=== PATIENT | female | born 1995 | race African-American/Black ===

== ENCOUNTER 2017-12-11 05:11 | Inpatient (IN) ==
[2017-12-11] MEDS ORDERED: ONDANSETRON 4 MG/2 ML VIAL IV PRN (05:21)
[2017-12-11] MEDS ORDERED: OXYTOCIN/LR 20 UNIT/1,000 ML BAG IV SCH (05:30)
[2017-12-11] MEDS: LACTATED RINGERS 1,000 ML IV SCH (05:40)
[2017-12-11 06:15] LABS: Basophils % 0.2 % (0.0-0.8); Eosinophils # 0.1 10*3/uL (0.0-0.87); Eosinophils % 1.1 % (0.00-10.9); Hemoglobin 11.1 GM/DL (12.0-16.0); Immature Granulocytes % 1.4 %; Immature Granulocytes Absolute 0.13 #; Lymphocytes # 2.7 10*3/uL (1.4-4.0); Lymphocytes % 28.3 % (21.3-54.2); Mean Corpuscular HGB Conc 33.6 GM/DL (32-36); Mean Corpuscular Hemoglobin 31 PG (27-34); Mean Corpuscular Volume 91.4 FL (87-102); Mean Platelet Volume 9.9 FL (9.6-12.0); Monocytes % 10.1 % (1.7-12.7); Neutrophils # 5.6 10*3/uL (1.4-7.4); Neutrophils % 58.9 % (38.7-73.9); Platelet Count 314 T/CUMM (130-400); Red Blood Count 3.61 MC/CUMM (3.8-5.5); Red Cell Distribution Width 13.4 % (9.3-17.3); White Blood Count 9.5 T/CUMM (4-12)
[2017-12-11] MEDS: CLINDAMYCIN INJ 900 MG in PREMIX 1 EACH IV SCH ×2 (06:28→14:09)
[2017-12-11 06:53] LABS: Albumin 2.8 G/DL (3.4-5.0); Bilirubin,Total 0.9 MG/DL (0.2-1.0); Calcium 8.5 MG/DL (8.5-10.1); Osmolality,Calculated 273.5 MOS/KG (273-304); Potassium 3.5 MMOL/L (3.5-5.1); Total Protein 6.8 G/DL (6.4-8.3)
[2017-12-11] MEDS ORDERED: BUTORPHANOL 2 MG/ML VIAL IV PRN (09:43)
[2017-12-11] MEDS ORDERED: FAMOTIDINE 20 MG/2 ML VIAL IV ONE (10:49)
[2017-12-11] MEDS ORDERED: PROMETHAZINE 25 MG/1 ML VIAL IM ONE (10:49)
[2017-12-11] MEDS ORDERED: ONDANSETRON 4 MG/2 ML VIAL IV ONE (10:49)
[2017-12-11] MEDS ORDERED: ePHEDrine 50 MG/ML AMP IV PRN (10:49)
[2017-12-11] MEDS ORDERED: hydrOXYzine HCL 25 MG/1 ML VIAL IM PRN (10:49)
[2017-12-11] MEDS ORDERED: CITRIC ACID/SODIUM CITRATE 30 ML UDCUP PO ONE (10:49)
[2017-12-11] MEDS ORDERED: diphenhydrAMINE 50 MG/1 ML VIAL IV PRN ×2 (10:49)
[2017-12-11] MEDS ORDERED: fentaNYL 2 MCG/ROPIV 0.2% EPID 150 ML EPIDURAL SCH (11:00)
[2017-12-11 12:36] LABS: Apearance,Urine CLEAR (Clear); Bilirubin,Urine Negative (Negative); Blood, Urine Negative (Negative); Glucose,Urine (UA) Negative (Negative); Ketones,Urine 20 mg/dL (Negative); Nitrite,Urine Negative (Negative); Protein,Urine Negative; RBC,Urine 3 /HPF (0-4); Urine Color Straw (Yellow); Urine Specific Gravity 1.006 (1.001-1.035); Urine Urobilinogen < 2.0 EU/DL (0.2-1.0); WBC,Urine <1 /HPF (0-6)
[2017-12-11] MEDS ORDERED: LIDOCAINE 1% 50 ML VIAL ONE (16:35)
[2017-12-11] MEDS ORDERED: METHYLERGONOVINE 0.2 MG/1 ML AMP ONE (16:36)
[2017-12-11] MEDS ORDERED: miSOPROStol 200 MCG TABLET ONE (16:36)
[2017-12-11] MEDS ORDERED: BISACODYL 10 MG SUPP RECTAL PRN (17:28)
[2017-12-11] MEDS ORDERED: ACETAMINOPHEN 325 MG TABLET PO PRN (17:28)
[2017-12-11] MEDS ORDERED: OXYTOCIN/LR 20 UNIT/1,000 ML BAG IV ONE (17:28)
[2017-12-11] MEDS ORDERED: oxyCODONE/ACETAMINOPHEN 5-325 MG TABLET PO PRN (17:28)
[2017-12-11] MEDS ORDERED: HYDROCORTISONE 2.5% RECTAL CREAM 30 GM TUBE TOP PRN (17:28)
[2017-12-11] MEDS ORDERED: WITCH HAZEL PADS 100/JAR TOP PRN (17:28)
[2017-12-11] MEDS ORDERED: BENZOCAINE 20%/MENTHOL 0.5% SPRAY 56 GM CAN TOP PRN (17:28)
[2017-12-11] MEDS ORDERED: MEASLES/MUMPS/RUBELLA VACCINE 0.5 ML VIAL SUBCUT ONE (17:28)
[2017-12-11] MEDS ORDERED: LANOLIN 50% CREAM 0.3 OZ TUBE TOP PRN (17:28)
[2017-12-11] MEDS ORDERED: DIPH/TET/ACEL PERT BOOSTER VACCINE 0.5 ML VIAL IM ONE (17:28)
[2017-12-11] MEDS ORDERED: RHO(D) IMMUNE GLOBULIN 300 MCG SYRINGE IM ONE (17:28)
[2017-12-11] MEDS: IBUPROFEN 800 MG TABLET PO PRN (18:59)
[2017-12-11] MEDS: DOCUSATE SODIUM 100 MG CAPSULE PO SCH (23:46)
[2017-12-11] MEDS: FERROUS SULFATE 325 MG TABLET PO SCH (23:46)
[2017-12-12 05:39] LABS: Basophils % 0.1 % (0.0-0.8); Eosinophils # 0.1 10*3/uL (0.0-0.87); Eosinophils % 0.3 % (0.00-10.9); Hematocrit 30.3 VOL% (35.7-47.0); Immature Granulocytes % 0.8 %; Immature Granulocytes Absolute 0.16 #; Lymphocytes # 2.2 10*3/uL (1.4-4.0); Lymphocytes % 11.6 % (21.3-54.2); Mean Corpuscular Hemoglobin 31 PG (27-34); Mean Corpuscular Volume 93.2 FL (87-102); Mean Platelet Volume 9.8 FL (9.6-12.0); Monocytes # 1.4 10*3/uL (0.11-0.8); Monocytes % 7.4 % (1.7-12.7); Neutrophils # 15.4 10*3/uL (1.4-7.4); Neutrophils % 79.8 % (38.7-73.9); Platelet Count 265 T/CUMM (130-400); Red Blood Count 3.25 MC/CUMM (3.8-5.5); Red Cell Distribution Width 13.1 % (9.3-17.3); White Blood Count 19.3 T/CUMM (4-12)
[2017-12-12] MEDS: DOCUSATE SODIUM 100 MG CAPSULE PO SCH ×2 (10:03→20:53)
[2017-12-12] MEDS: FERROUS SULFATE 325 MG TABLET PO SCH ×3 (10:03→20:53)
[2017-12-12] MEDS: IBUPROFEN 800 MG TABLET PO PRN ×2 (10:03→20:53)
[2017-12-12] MEDS: oxyCODONE/ACETAMINOPHEN 5-325 MG TABLET PO PRN ×2 (10:04→22:29)
[2017-12-13] MEDS: LACTATED RINGERS 1,000 ML IV SCH ×2 (06:39→06:40)
[2017-12-13 08:14] VITALS: BP 112/57
[2017-12-13] MEDS: FERROUS SULFATE 325 MG TABLET PO SCH (10:03)
[2017-12-13] MEDS: IBUPROFEN 800 MG TABLET PO PRN (10:03)
[2017-12-13] MEDS: DOCUSATE SODIUM 100 MG CAPSULE PO SCH (10:03)
[2017-12-13] MEDS: oxyCODONE/ACETAMINOPHEN 5-325 MG TABLET PO PRN (10:04)
== END 2017-12-13 11:55 | disposition home or self-care (01) | DRG 560 ==
LOC: N.LDOUT 05:11 → N.LD 05:14 → N.OB 19:45
PROVIDERS: ADMIT Obstetrics & Gynecology; ATTEND Obstetrics & Gynecology

== ENCOUNTER 2019-05-04 07:24 | Inpatient (IN) ==
[2019-05-04] MEDS ORDERED: TERBUTALINE 1 MG/1 ML VIAL SUBCUT ONE (07:37)
[2019-05-04] MEDS ORDERED: TERBUTALINE 1 MG/1 ML VIAL SUBCUT PRN (07:39)
[2019-05-04] MEDS ORDERED: LACTATED RINGERS 1,000 ML IV ONE (07:39)
[2019-05-04] MEDS ORDERED: ONDANSETRON 4 MG/2 ML VIAL IV ONE (07:42)
[2019-05-04] MEDS ORDERED: BUTORPHANOL 2 MG/ML VIAL IV ONE (07:42)
[2019-05-04] MEDS ORDERED: BUTORPHANOL 2 MG/ML VIAL ONE (07:44)
[2019-05-04] MEDS ORDERED: ONDANSETRON 4 MG/2 ML VIAL ONE (07:45)
[2019-05-04] MEDS ORDERED: BETAMETH SODIUM PHOS/ACETATE 30 MG/5 ML VIAL IM SCH (08:00)
[2019-05-04] MEDS ORDERED: MAGNESIUM SULF RIDER 100 ML IV ONE (08:23)
[2019-05-04] MEDS ORDERED: ONDANSETRON 4 MG/2 ML VIAL IV PRN (08:24)
[2019-05-04] MEDS ORDERED: BUTORPHANOL 2 MG/ML VIAL IV PRN (08:24)
[2019-05-04] MEDS ORDERED: LACTATED RINGERS 500 ML IV PRN (08:24)
[2019-05-04] MEDS ORDERED: LACTATED RINGERS 1,000 ML IV SCH (08:30)
[2019-05-04 08:55] LABS: Basophils % 0.1 % (0.0-0.8); Eosinophils % 0.1 % (0.00-10.9); Hematocrit 30.3 VOL% (35.7-47.0); Hemoglobin 9.6 GM/DL (12.0-16.0); Lymphocytes # 1.9 10*3/uL (1.4-4.0); Lymphocytes % 9.7 % (21.3-54.2); Mean Corpuscular HGB Conc 31.7 GM/DL (32-36); Mean Corpuscular Volume 96.8 FL (87-102); Mean Platelet Volume 9.3 FL (9.6-12.0); Monocytes % 7.3 % (1.7-12.7); Neutrophils % 81.8 % (38.7-73.9); Platelet Count 231 T/CUMM (130-400); Red Blood Count 3.13 MC/CUMM (3.8-5.5); Red Cell Distribution Width 12.4 % (9.3-17.3); White Blood Count 19.7 T/CUMM (4-12)
[2019-05-04] MEDS ORDERED: MAGNESIUM SULF DRIP 40 GM/1,000 ML ML IV SCH (09:00)
[2019-05-04] MEDS ORDERED: CLINDAMYCIN INJ 900 MG in PREMIX 1 EACH IV SCH (09:00)
[2019-05-04] MEDS ORDERED: CITRIC ACID/SODIUM CITRATE 30 ML UDCUP PO ONE (09:32)
[2019-05-04] MEDS ORDERED: ePHEDrine 50 MG/ML AMP IV PRN (09:32)
[2019-05-04] MEDS ORDERED: FAMOTIDINE 20 MG/2 ML VIAL IV ONE (09:32)
[2019-05-04] MEDS ORDERED: fentaNYL 2 MCG/ROPIV 0.2% EPID 100 ML EPIDURAL SCH (10:00)
[2019-05-04 12:30] LABS: Apearance,Urine CLEAR (Clear); Bilirubin,Urine Negative (Negative); Blood, Urine Negative (Negative); Glucose,Urine (UA) Negative (Negative); Ketones,Urine 20 mg/dL (Negative); Mucus,Urine Occasional /LPF (Occasional); Nitrite,Urine Negative (Negative); Protein,Urine Negative; Squamous Epithelial Cell,Urine Occasional /HPF (0-10); Urine Color Straw (Yellow); Urine Specific Gravity 1.005 (1.001-1.035); Urine Urobilinogen < 2.0 EU/DL (0.2-1.0)
[2019-05-04] MEDS ORDERED: miSOPROStoL 200 MCG TABLET ONE (13:19)
[2019-05-04] MEDS ORDERED: OXYTOCIN/LR 20 UNIT/1,000 ML BAG IV ONE (13:20)
[2019-05-04] MEDS ORDERED: RHO(D) IMMUNE GLOBULIN 300 MCG SYRINGE IM ONE (16:12)
[2019-05-04] MEDS ORDERED: BENZOCAINE 20%/MENTHOL 0.5% SPRAY 56 GM CAN TOP PRN (16:12)
[2019-05-04] MEDS ORDERED: ACETAMINOPHEN 325 MG TABLET PO PRN (16:12)
[2019-05-04] MEDS ORDERED: BISACODYL 10 MG SUPP RECTAL PRN (16:12)
[2019-05-04] MEDS ORDERED: HYDROCORTISONE 2.5% RECTAL CREAM 30 GM TUBE TOP PRN (16:12)
[2019-05-04] MEDS ORDERED: MEASLES/MUMPS/RUBELLA VACCINE 0.5 ML VIAL SUBCUT ONE (16:12)
[2019-05-04] MEDS ORDERED: LANOLIN 50% CREAM 0.3 OZ TUBE TOP PRN (16:12)
[2019-05-04] MEDS ORDERED: oxyCODONE/ACETAMINOPHEN 5-325 MG TABLET PO PRN (16:12)
[2019-05-04] MEDS ORDERED: DIPH/TET/ACEL PERT BOOSTER VACCINE 0.5 ML VIAL IM ONE (16:12)
[2019-05-04] MEDS ORDERED: WITCH HAZEL PADS 100/JAR TOP PRN (16:12)
[2019-05-04] MEDS: IBUPROFEN 800 MG TABLET PO PRN (16:43)
[2019-05-04] MEDS: oxyCODONE/ACETAMINOPHEN 5-325 MG TABLET PO PRN ×2 (17:53→23:40)
[2019-05-04] MEDS: DOCUSATE SODIUM 100 MG CAPSULE PO SCH (20:12)
[2019-05-05 05:08] LABS: Basophils % 0.1 % (0.0-0.8); Hematocrit 25.9 VOL% (35.7-47.0); Hemoglobin 8.5 GM/DL (12.0-16.0); Immature Granulocytes % 2.3 %; Immature Granulocytes Absolute 0.67 #; Lymphocytes # 1.9 10*3/uL (1.4-4.0); Lymphocytes % 6.7 % (21.3-54.2); Mean Corpuscular HGB Conc 32.8 GM/DL (32-36); Mean Corpuscular Volume 94.9 FL (87-102); Monocytes % 6.6 % (1.7-12.7); Neutrophils % 84.3 % (38.7-73.9); Platelet Count 241 T/CUMM (130-400); Red Blood Count 2.73 MC/CUMM (3.8-5.5); Red Cell Distribution Width 12.3 % (9.3-17.3); White Blood Count 28.8 T/CUMM (4-12)
[2019-05-05 05:36] LABS: Atypical Lymphocytes Few; Lymphocytes 6 % (20-55); Platelet Estimate Normal; Segmented Neutrophils 90 % (50-85); Total Cells Counted 100
[2019-05-05] MEDS: DOCUSATE SODIUM 100 MG CAPSULE PO SCH ×2 (09:23→22:31)
[2019-05-05] MEDS: FERROUS SULFATE 325 MG TABLET PO SCH ×2 (09:23→22:31)
[2019-05-05] MEDS: oxyCODONE/ACETAMINOPHEN 5-325 MG TABLET PO PRN ×2 (10:52→18:23)
[2019-05-05] MEDS: IBUPROFEN 800 MG TABLET PO PRN (22:31)
[2019-05-06 07:20] VITALS: BP 92/57
[2019-05-06] MEDS: DOCUSATE SODIUM 100 MG CAPSULE PO SCH (08:55)
[2019-05-06] MEDS: IBUPROFEN 800 MG TABLET PO PRN (08:56)
[2019-05-06] MEDS: FERROUS SULFATE 325 MG TABLET PO SCH (08:56)
[2019-05-06] MEDS ORDERED: INFLUENZA VIRUS VACCINE 0.5 ML SYRINGE IM ONE (12:00)
== END 2019-05-06 12:45 | disposition home or self-care (01) | DRG 560 ==
LOC: N.LDOUT 07:24 → N.LD 08:52 → N.OB 16:06
PROVIDERS: ADMIT Obstetrics & Gynecology; ATTEND Obstetrics & Gynecology

== ENCOUNTER 2021-11-03 10:04 | Inpatient (IN) ==
[2021-11-03] MEDS ORDERED: LACTATED RINGERS 1,000 ML IV ONE (10:22)
[2021-11-03] MEDS ORDERED: miSOPROStoL 200 MCG TABLET RECTAL PRN (10:22)
[2021-11-03] MEDS ORDERED: METHYLERGONOVINE 0.2 MG/1 ML AMP IM PRN (10:22)
[2021-11-03] MEDS ORDERED: OXYTOCIN/LR 20 UNIT/1,000 ML BAG IV ONE ×2 (10:22→17:49)
[2021-11-03] MEDS ORDERED: TRANEXAMIC ACID 1,000 MG in SODIUM CHLORIDE 0.9% 100 ML IV PRN (10:22)
[2021-11-03] MEDS ORDERED: ONDANSETRON 4 MG/2 ML VIAL IV PRN ×2 (10:22→17:49)
[2021-11-03] MEDS ORDERED: CARBOPROST TROMETHAMINE 250 MCG/ML AMP IM PRN (10:22)
[2021-11-03] MEDS ORDERED: LACTATED RINGERS 1,000 ML IV SCH (10:30)
[2021-11-03] MEDS ORDERED: CLINDAMYCIN INJ 900 MG/50 ML PREMIX IV SCH (11:00)
[2021-11-03 11:02] LABS: Basophils % 0.2 % (0.0-0.8); Eosinophils # 0.1 10*3/uL (0.0-0.87); Eosinophils % 0.9 % (0.00-10.9); Hematocrit 34.5 VOL% (35.7-47.0); Immature Granulocytes % 0.8 %; Immature Granulocytes Absolute 0.05 #; Lymphocytes # 2.3 10*3/uL (1.4-4.0); Lymphocytes % 36.2 % (21.3-54.2); Mean Corpuscular HGB Conc 31.9 GM/DL (32-36); Mean Corpuscular Volume 96.4 FL (87-102); Mean Platelet Volume 9.7 FL (9.6-12.0); Monocytes # 0.6 10*3/uL (0.11-0.8); Monocytes % 9.9 % (1.7-12.7); Platelet Count 289 T/CUMM (130-400); Red Blood Count 3.58 MC/CUMM (3.8-5.5); Red Cell Distribution Width 12.8 % (9.3-17.3); White Blood Count 6.4 T/CUMM (4-12)
[2021-11-03] MEDS ORDERED: OXYTOCIN/LR 20 UNIT/1,000 ML BAG IV SCH (12:00)
[2021-11-03] MEDS ORDERED: PROMETHAZINE 25 MG/1 ML VIAL IM ONE (13:10)
[2021-11-03] MEDS ORDERED: diphenhydrAMINE 50 MG/1 ML VIAL IV PRN ×2 (13:10)
[2021-11-03] MEDS ORDERED: ePHEDrine 50 MG/ML VIAL IV PRN (13:10)
[2021-11-03] MEDS ORDERED: hydrOXYzine HCL 25 MG/1 ML VIAL IM PRN (13:10)
[2021-11-03] MEDS ORDERED: ONDANSETRON 4 MG/2 ML VIAL IV ONE (13:10)
[2021-11-03] MEDS ORDERED: FAMOTIDINE 20 MG/2 ML VIAL IV ONE (13:10)
[2021-11-03] MEDS ORDERED: NALOXONE 0.4 MG/ML VIAL IV PRN (13:10)
[2021-11-03] MEDS ORDERED: CITRIC ACID/SODIUM CITRATE 30 ML UDCUP PO ONE (13:10)
[2021-11-03] MEDS ORDERED: fentaNYL 2 MCG/ROPIV 0.2% EPID 100 ML EPIDURAL SCH (13:30)
[2021-11-03 14:45] LABS: Hyaline Casts,Urine 1 /LPF (0-3); Mucus,Urine Few /LPF (Occasional); RBC,Urine <1 /HPF (0-4); Squamous Epithelial Cell,Urine Occasional /HPF (0-10)
[2021-11-03 14:46] LABS: Bilirubin,Urine Negative (Negative); Blood, Urine Negative (Negative); Glucose,Urine (UA) Negative (Negative); Ketones,Urine Negative (Negative); Nitrite,Urine Negative (Negative); Protein,Urine Negative (Negative); Urine Appearance Clear (Clear); Urine Color Yellow (Yellow); Urine Specific Gravity 1.025 (1.001-1.035)
[2021-11-03] MEDS ORDERED: RHO(D) IMMUNE GLOBULIN 300 MCG SYRINGE IM ONE (17:49)
[2021-11-03] MEDS ORDERED: BISACODYL 10 MG SUPP RECTAL PRN (17:49)
[2021-11-03] MEDS ORDERED: BENZOCAINE 20%/MENTHOL 0.5% SPRAY 56 GM CAN TOP PRN (17:49)
[2021-11-03] MEDS ORDERED: HYDROCORTISONE 2.5% RECTAL CREAM 30 GM TUBE TOP PRN (17:49)
[2021-11-03] MEDS ORDERED: WITCH HAZEL PADS 100/JAR TOP PRN (17:49)
[2021-11-03] MEDS ORDERED: LANOLIN 50% CREAM 0.3 OZ TUBE TOP PRN (17:49)
[2021-11-03] MEDS ORDERED: MEASLES/MUMPS/RUBELLA VACCINE 0.5 ML VIAL SUBCUT ONE (17:49)
[2021-11-03] MEDS ORDERED: ACETAMINOPHEN 325 MG TABLET PO PRN (17:49)
[2021-11-03] MEDS ORDERED: DIPH/TET/ACEL PERT BOOSTER VACCINE 0.5 ML VIAL IM ONE (17:49)
[2021-11-03 17:53] LABS: Cord Arterial Blood HCO3 21.3 MMOL/L
[2021-11-03 17:56] LABS: Cord Venous Blood HCO3 22.1 MMOL/L; Cord Venous Blood PCO2 47.9 MMHG; Cord Venous Blood PO2 19.1
[2021-11-03] MEDS: oxyCODONE/ACETAMINOPHEN 5-325 MG TABLET PO PRN (19:07)
[2021-11-03] MEDS: IBUPROFEN 800 MG TABLET PO PRN (19:08)
[2021-11-03] MEDS: DOCUSATE SODIUM 100 MG CAPSULE PO SCH (21:26)
[2021-11-04] MEDS: IBUPROFEN 800 MG TABLET PO PRN ×3 (01:14→23:04)
[2021-11-04] MEDS: oxyCODONE/ACETAMINOPHEN 5-325 MG TABLET PO PRN ×3 (03:30→15:25)
[2021-11-04 06:11] LABS: Basophils % 0.1 % (0.0-0.8); Eosinophils # 0.1 10*3/uL (0.0-0.87); Eosinophils % 0.9 % (0.00-10.9); Hematocrit 31.3 VOL% (35.7-47.0); Hemoglobin 10.1 GM/DL (12.0-16.0); Immature Granulocytes % 0.6 %; Immature Granulocytes Absolute 0.06 #; Lymphocytes # 2.7 10*3/uL (1.4-4.0); Lymphocytes % 26.9 % (21.3-54.2); Mean Corpuscular HGB Conc 32.3 GM/DL (32-36); Mean Corpuscular Volume 95.1 FL (87-102); Monocytes # 0.9 10*3/uL (0.11-0.8); Monocytes % 9.3 % (1.7-12.7); Neutrophils % 62.2 % (38.7-73.9); Platelet Count 231 T/CUMM (130-400); Red Blood Count 3.29 MC/CUMM (3.8-5.5); Red Cell Distribution Width 12.6 % (9.3-17.3)
[2021-11-04] MEDS: DOCUSATE SODIUM 100 MG CAPSULE PO SCH ×3 (07:55→21:34)
[2021-11-04 21:55] LABS: Barbiturates Screen,Urine Negative (Negative); Benzodiazepines Screen,Urine Negative (Negative); Cannabinoid Screen,Urine Positive (Negative); Opiate Screen,Urine Negative (Negative); Phencyclidine Screen,Urine Negative (Negative)
[2021-11-05] MEDS: oxyCODONE/ACETAMINOPHEN 5-325 MG TABLET PO PRN ×2 (03:32→11:46)
[2021-11-05] MEDS: DOCUSATE SODIUM 100 MG CAPSULE PO SCH (08:55)
[2021-11-05] MEDS: IBUPROFEN 800 MG TABLET PO PRN (08:59)
[2021-11-05 12:19] VITALS: BP 108/62
== END 2021-11-05 16:15 | disposition home or self-care (01) | DRG 560 ==
LOC: N.LDOUT 10:04 → N.LD 10:06 → N.OB 20:15
PROVIDERS: ADMIT Obstetrics & Gynecology; ATTEND Obstetrics & Gynecology